=== PATIENT | female | born 1965 | race Caucasian/White ===

== ENCOUNTER 2020-07-14 10:01 | Outpatient (REF) | payer OTHER, SELFPAY ==
[2020-07-15 12:57] LABS: BV Int Neg Control Negative (Negative); BV Int Pos Control Positive (Positive)
== END 2020-07-14 10:02 | disposition home or self-care (01) ==
LOC: HO.LAB 10:01
PROVIDERS: Referring Provider Family Medicine; Visit Provider Advanced Practice Midwife
DX: Z01.419 Encounter for gynecological examination (general) (routine) without abnormal findings (principal); N89.8 Other specified noninflammatory disorders of vagina
CPT/HCPCS: 87480; 87510; 87660

== ENCOUNTER 2020-08-19 10:42 | Outpatient (REF) | payer OTHER, SELFPAY ==
--- NOTE | 2020-08-19 10:45 | MM_ITS ---
EXAMINATION: MM SCREENING DIGITAL BREAST TOMOSYNTHESIS, BILATERAL CLINICAL INFORMATION: Screening. Asymptomatic. The lifetime risk of breast cancer based on the Tyrer-Cuzick Model is 16.4%. COMPARISON: Mammography: July 20, 2019 and studies dating back to May 08, 2016 TECHNIQUE: Digital breast tomosynthesis is performed in both the craniocaudal and mediolateral oblique views along with computer-aided detection (CAD). Synthesized 2D images are generated from the tomosynthesis. FINDINGS: The breasts are heterogeneously dense, which may obscure small masses (ACR BI-RADS breast composition Category c). There are no significant masses, abnormal calcifications, or other abnormalities. MM/MM tomosynthesis screening BI IMPRESSION: There are no significant changes from prior study. ASSESSMENT: BI-RADS 1: Negative RECOMMENDATION: Routine annual mammography screening. This patient's information was entered into a reminder system with a target due date for their next mammogram.
== END 2020-08-19 10:43 | disposition home or self-care (01) ==
LOC: HO.MAMMO 10:42
PROVIDERS: Visit Provider Advanced Practice Midwife
DX: Z12.31 Encounter for screening mammogram for malignant neoplasm of breast (principal)
CPT/HCPCS: 77063; 77067

== ENCOUNTER → 2020-10-13 14:06 | Outpatient (BNVA) | payer OTHER, SELFPAY | PROVIDERS: PCP Family Medicine; Visit Provider Advanced Practice Midwife | DX: N94.9 Unspecified condition associated with female genital organs and menstrual cycle (principal); N89.8 Other specified noninflammatory disorders of vagina; R10.30 Lower abdominal pain, unspecified | CPT/HCPCS: Q3014 ==

== ENCOUNTER → 2021-01-10 15:45 | Outpatient (BNVA) | payer OTHER, SELFPAY | PROVIDERS: PCP Family Medicine; Visit Provider Advanced Practice Midwife | DX: N94.9 Unspecified condition associated with female genital organs and menstrual cycle (principal) | CPT/HCPCS: 99212; Q3014 ==

== ENCOUNTER 2021-01-30 20:09 | Emergency (ER) | payer OTHER, SELFPAY ==
--- NOTE | ~2021-01-30 | XR_ITS ---
EXAMINATION: PORTABLE CHEST 1 VIEW CLINICAL INFORMATION: cp . COMPARISON: 08/23/2012. TECHNIQUE: Portable frontal view of the chest was obtained. FINDINGS: The lungs are well expanded. No focal infiltrate, effusion, edema, or pneumothorax. Cardiac and mediastinal silhouettes are within normal limits for technique. No acute bony abnormality seen. XR/XR chest 1V IMPRESSION: No evidence of acute disease.
--- NOTE | 2021-01-30 20:12 | ECG_ITS ---
Test Reason : ABD PAIN Blood Pressure : / mmHG Vent. Rate : 064 BPM Atrial Rate : 064 BPM P-R Int : 136 ms QRS Dur : 080 ms QT Int : 400 ms P-R-T Axes : 074 081 061 degrees QTc Int : 412 ms Normal sinus rhythm Normal ECG When compared with ECG of 23-AUG-2012 21:11, No significant change was found Referred By: Generic ED Physician Electronically Signed By:TIFFANIE FINE MD
[2021-01-30 20:39] LABS: MANUAL DIFF FLAG NO
[2021-01-30 20:46] VITALS: BP 118/75; PULSE 69; RESP 18; TEMP 37.1; O2SAT 99; BMI 23.7
[2021-01-30 20:50] LABS: Basophils Percent Auto 0.8 % (0-2); Eosinophils Absolute Auto 0.1 X10*3/uL (0.0-0.4); Eosinophils Percent Auto 2.5 % (0-4); Hematocrit 35.6 % (37-47); Hemoglobin 11.8 g/dl (12.0-16.0); Imm Gran Abs Auto 0.01 X10*3/uL (0.00-0.03); Imm Gran Pct Auto 0.2 % (0.0-0.4); Lymphocytes Absolute Auto 2.4 X10*3/uL (1.2-4.9); Lymphocytes Percent Auto 49.9 % (20-40); Mean Corpuscular HGB Conc 33.1 g/dl (31.0-35.0); Mean Corpuscular Hemoglobin 31.1 pg (27.0-33.0); Mean Corpuscular Volume 93.9 fL (80-98); Mean Platelet Volume 9.8 fL (9.4-12.3); Monocytes Absolute Auto 0.4 X10*3/uL (0.1-1.2); Monocytes Percent Auto 8.4 % (2-11); Neutrophils Absolute Auto 1.8 X10*3/uL (2.0-8.3); Neutrophils Percent Auto 38.2 % (45-73); Platelet Count 225 X10*3/uL (160-400); Red Blood Count 3.79 X10*6/uL (4.20-5.50); Red Cell Distribution Width 11.9 % (11.0-16.0); White Blood Count 4.8 X10*3/uL (4.8-10.8)
[2021-01-30 21:07] LABS: Troponin-I High Sensitivity < 3.5 ng/L (<3.5-17.0)
[2021-01-30 21:13] LABS: Anion Gap 11 (12-20); Blood Urea Nitrogen 14 mg/dL (9-16); Calcium 8.9 mg/dL (8.4-10.2); Carbon Dioxide 28 mmol/L (22-29); Chloride 108 mmol/L (96-108); Estimated Glomerular Filt Rate > 60; Glucose Random 93 mg/dL (60-115); Potassium 3.5 mmol/L (3.3-5.1); Sodium 143 mmol/L (135-145)
[2021-01-30 22:00] VITALS: BP 118/75; PULSE 69; RESP 18; O2SAT 99
--- NOTE | 2021-01-31 00:16 | ED.CHESTPAIN ---
HPI - Chest Pain General Chief Complaint: Chest Pain Stated Complaint: chest pain Time Seen by Provider: 01/31/21 00:14 Source: patient Mode of arrival: ambulatory Limitations: no limitations History of Present Illness MD complaint: chest pain Onset (ago): week(s) (2) Timing of current episode: episodic Prior episodes: No Onset: after eating Pain location: substernal Pain radiation: none Severity: moderate Quality: tightness Relieving factors: other (belching) Exacerbating factors: eating Treatment prior to arrival: none Related Data Previous Rx's Medication Instructions Recorded estradiol 1 g VAGINAL 2XW #42.5 g 01/10/21 omeprazole 20 mg PO DAILY 14 Days #14 cap 01/31/21 Allergies Allergy/AdvReac Type Severity Reaction Status Date / Time latex [LATEX] Allergy Unknown RASH Verified 01/30/21 20:46 milk [MILK] Allergy Unknown UNKNOWN Verified 01/30/21 20:46 Review of Systems Review of Systems: Constitutional : No Weight loss, No Fever, No Chills ENT/Mouth : No sore throat, No Rhinorrhea Eyes: No Eye Pain, No Swelling Cardiovascular : pos Chest Pain, noSOB, no Dyspnea on Exertion, No Orthopnea, No Edema, No Palpitations Respiratory : No Cough, No Sputum Gastrointestinal : pos Nausea, No Vomiting, No Diarrhea, No abdominal Pain, No Hematochezia, pos Melena post pepto bismol Genitourinary : No Dysuria, No Urinary Frequency Musculoskeletal : No joint pain, No Myalgias, No Joint Swelling Skin : No Skin Lesions, No rash Neuro : No Weakness, No Numbness, No Dizziness, No Headache Psych : No Anxiety/Panic, No Depression Heme/Lymph: No Bruising, No Lymphadenopathy Endocrine : No Polyuria, No Polydipsia All other systems reviewed and are negative [facility] Past Medical History Attestation statement: The following information was validated with the patient. Medical History Menorrhagia Surgical History Hx of appendectomy Hx of removal of ovary Hx of total hysterectomy Family History Family History Father HTN (hypertension) Stroke Mother HTN (hypertension) Stroke Breast cancer Social History Social History Alcohol intake: current Alcohol intake frequency: 3 or more drinks per day Alcohol type: wine Smoking Status: Unknown if ever smoked Use of substances other than those prescribed or required for medical reasons: Unknown Advance Directives: No Advance Directives Information Provided: No Patient : No Gender identity: female Physical Exam Vital Signs: Vital Signs: Last Vital Signs Temp 98.7 F 01/30/21 20:46 Pulse 69 01/30/21 22:00 Resp 18 01/30/21 22:00 BP 118/75 01/30/21 22:00 Pulse Ox 99 01/30/21 22:00 Body Mass Index 23.7 Appearance: Alert. Oriented X3. No acute distress. Eyes: Pupils equal, round and reactive to light. ENT: Pharynx normal. Neck: Normal inspection. Neck supple. CVS: Normal heart rate and rhythm. Pulses normal. Respiratory: No respiratory distress. Breath sounds normal. Abdomen: Soft and nontender. Skin: Skin warm and dry. Normal skin color. Normal skin turgor. Extremities: No lower extremity edema. No calf ttp Neuro: Oriented X 3. No motor deficit. No sensory deficit. MDM - Chest Pain MDM Narrative Medical decision making narrative: 55 yo female otherwise healthy no ACS risk factors, belching and chest tightness feels it is GERD x 2 weeks sent by urgent care clinic, not pleuritic, no hypoxia, no signs of DVT doubt PE at thist iem will need troponin x 1, EKG, CXR, suspect GERD Lab Data Result diagrams: 01/30/21 20:31 01/30/21 20:31 Labs: Lab Results 01/30/21 01/30/21 01/30/21 Range/Units 20:31 20:31 20:31 WBC 4.8 (4.8-10.8) X10*3/uL RBC 3.79 L (4.20-5.50) X10*6/uL Hgb 11.8 L (12.0-16.0) g/dl Hct 35.6 L (37-47) % MCV 93.9 (80-98) fL MCH 31.1 (27.0-33.0) pg MCHC 33.1 (31.0-35.0) g/dl RDW 11.9 (11.0-16.0) % Plt Count 225 (160-400) X10*3/uL MPV 9.8 (9.4-12.3) fL Immature Gran % (Auto) 0.2 (0.0-0.4) % Neut % (Auto) 38.2 L (45-73) % Lymph % (Auto) 49.9 H (20-40) % [place] % (Auto) 8.4 (2-11) % Eos % (Auto) 2.5 (0-4) % Baso % (Auto) 0.8 (0-2) % Lymph # (Auto) 2.4 (1.2-4.9) X10*3/uL [place] # (Auto) 0.4 (0.1-1.2) X10*3/uL Eos # (Auto) 0.1 (0.0-0.4) X10*3/uL Baso # (Auto) 0.0 (0.0-0.2) X10*3/uL Abs Immat Gran (auto) 0.01 (0.00-0.03) X10*3/uL Absolute Neuts (auto) 1.8 L (2.0-8.3) X10*3/uL Absolute Nucleated RBC 0.000 (0.0-0.012) X10*3/uL Nucleated RBC % (auto) 0.0 (0.0-0.2) /100WBC Hold Blue Top SEE NOTE Sodium 143 (135-145) mmol/L Potassium 3.5 (3.3-5.1) mmol/L Chloride 108 (96-108) mmol/L Carbon Dioxide 28 (22-29) mmol/L Anion Gap 11 L (12-20) BUN 14 (9-16) mg/dL Creatinine 0.81 (0.5-1.4) mg/dL Estim Creat Clear Calc 81.0 Estimated GFR > 60 Random Glucose 93 (60-115) mg/dL Calcium 8.9 (8.4-10.2) mg/dL Troponin I High Sens (<3.5-17.0) ng/L Stool Occult Blood (NEGATIVE) 01/30/21 01/31/21 Range/Units 20:31 00:25 WBC (4.8-10.8) X10*3/uL RBC (4.20-5.50) X10*6/uL Hgb (12.0-16.0) g/dl Hct (37-47) % MCV (80-98) fL MCH (27.0-33.0) pg MCHC (31.0-35.0) g/dl RDW (11.0-16.0) % Plt Count (160-400) X10*3/uL MPV (9.4-12.3) fL Immature Gran % (Auto) (0.0-0.4) % Neut % (Auto) (45-73) % Lymph % (Auto) (20-40) % [place] % (Auto) (2-11) % Eos % (Auto) (0-4) % Baso % (Auto) (0-2) % Lymph # (Auto) (1.2-4.9) X10*3/uL [place] # (Auto) (0.1-1.2) X10*3/uL Eos # (Auto) (0.0-0.4) X10*3/uL Baso # (Auto) (0.0-0.2) X10*3/uL Abs Immat Gran (auto) (0.00-0.03) X10*3/uL Absolute Neuts (auto) (2.0-8.3) X10*3/uL Absolute Nucleated RBC (0.0-0.012) X10*3/uL Nucleated RBC % (auto) (0.0-0.2) /100WBC Hold Blue Top Sodium (135-145) mmol/L Potassium (3.3-5.1) mmol/L Chloride (96-108) mmol/L Carbon Dioxide (22-29) mmol/L Anion Gap (12-20) BUN (9-16) mg/dL Creatinine (0.5-1.4) mg/dL Estim Creat Clear Calc Estimated GFR Random Glucose (60-115) mg/dL Calcium (8.4-10.2) mg/dL Troponin I High Sens < 3.5 (<3.5-17.0) ng/L Stool Occult Blood NEGATIVE (NEGATIVE) ECG Data ECG #1: Attestation: I personally reviewed and interpreted this ECG as follows: ECG interpretation date: 01/31/21 ECG interpretation time: 00:17 Interpretation: Rate: 64 Rhythm: NSR [place]: normal Normal P waves. Normal ZARI. Normal QRS complex. ST T wave : normal no MARGARET qTC: normal prior studies: no acute ischemia The study has been interpreted contemporaneously by me. . Discharge Plan Discharge Clinical Impression: Gastroesophageal reflux disease Patient Disposition: Home, Self-Care Instructions: Diet for Stomach Ulcers and Gastritis (ED), Gastroesophageal Reflux Disease (ED) Additional Instructions: return to ED for any worsening symptoms or concerns negative for stool in the blood Prescriptions: New omeprazole 20 mg capsule,delayed release(DR/EC) 20 mg PO DAILY 14 Days Qty: 14 RF: 1 No Action estradiol [Estrace] 0.01 % (0.1 mg/gram) cream 1 g vaginal 2XW Qty: 42.5 RF: 1 Referrals: Jamaica Waldrop MD [Primary Care Provider] - 5 days (if not better)
[2021-01-31] MEDS: Famotidine 20 MG TABLET PO (00:34)
[2021-01-31] MEDS: Lidocaine HCl Viscous 2 % 15 ML SOLUTION MUCOUS MEM (00:34)
[2021-01-31] MEDS: Magnesium Hydrox/Alum Hydrox 30 ML ORAL.SUSP PO (00:34)
[2021-01-31 00:57] LABS: OBS Int Ctl Valid YES; OBS1 NEGATIVE (NEGATIVE)
== END 2021-01-31 03:51 | disposition home or self-care (01) ==
PROVIDERS: Emergency Provider Emergency Medicine; PCP Family Medicine
DX: K21.9 Gastro-esophageal reflux disease without esophagitis (principal); Z79.899 Other long term (current) drug therapy
CPT/HCPCS: 36415; 71045; 80048; 82272; 84484; 85025; 93005; 99285

== ENCOUNTER → 2021-04-09 08:44 | Outpatient (BNVA) | payer OTHER, SELFPAY | PROVIDERS: PCP Family Medicine; Visit Provider Advanced Practice Midwife | DX: N94.9 Unspecified condition associated with female genital organs and menstrual cycle (principal); N95.2 Postmenopausal atrophic vaginitis | CPT/HCPCS: 99212 ==

== ENCOUNTER → 2021-07-17 08:04 | Outpatient (BNVA) | payer OTHER, SELFPAY | PROVIDERS: PCP Family Medicine; Visit Provider Advanced Practice Midwife ==

== ENCOUNTER 2021-09-20 15:01 | Outpatient (REF) | payer OTHER, SELFPAY ==
--- NOTE | ~2021-09-20 | MM_ITS ---
EXAMINATION: MM SCREENING DIGITAL BREAST TOMOSYNTHESIS, BILATERAL CLINICAL INFORMATION: Screening. Asymptomatic. The lifetime risk of breast cancer based on the Tyrer-Cuzick Model is 22.9%. Additional annual screening with breast MRI may be of benefit in women with a score of 20% or greater. COMPARISON: Mammography: August 19, 2020 and studies dating back to May 08, 2016 TECHNIQUE: Digital breast tomosynthesis is performed in both the craniocaudal and mediolateral oblique views along with computer-aided detection (CAD). Synthesized 2D images are generated from the tomosynthesis. FINDINGS: There are scattered areas of fibroglandular density (ACR BI-RADS breast composition Category b). There are no significant masses, abnormal calcifications, or other abnormalities. MM/MM tomosynthesis screening BI IMPRESSION: There are no significant changes from prior study. ASSESSMENT: BI-RADS 1: Negative RECOMMENDATION: Routine annual mammography screening. This patient's information was entered into a reminder system with a target due date for their next mammogram.
== END 2021-09-20 15:02 | disposition home or self-care (01) ==
LOC: HO.MAMMO 15:01
PROVIDERS: Visit Provider Advanced Practice Midwife
DX: Z12.31 Encounter for screening mammogram for malignant neoplasm of breast (principal)
CPT/HCPCS: 77063; 77067

== ENCOUNTER 2022-09-26 15:00 | Outpatient (REF) | payer OTHER, SELFPAY ==
--- NOTE | ~2022-09-26 | MM_ITS ---
EXAMINATION: MM SCREENING DIGITAL BREAST TOMOSYNTHESIS, BILATERAL CLINICAL INFORMATION: Screening. Asymptomatic. The lifetime risk of breast cancer based on the Tyrer-Cuzick Model is 19.2%. COMPARISON: Mammography: September 20, 2021 and studies dating back to March 23, 2015 TECHNIQUE: Digital breast tomosynthesis is performed in both the craniocaudal and mediolateral oblique views along with computer-aided detection (CAD). Synthesized 2D images are generated from the tomosynthesis. FINDINGS: There are scattered areas of fibroglandular density (ACR BI-RADS breast composition Category b). There are no significant masses, abnormal calcifications, or other abnormalities. MM/MM tomosynthesis screening BI IMPRESSION: No significant changes ASSESSMENT: BI-RADS 1: Negative RECOMMENDATION: Routine annual mammography screening. This patient's information was entered into a reminder system with a target due date for their next mammogram.
== END 2022-09-26 15:01 | disposition home or self-care (01) ==
LOC: HO.MAMMO 15:00
PROVIDERS: Visit Provider Family Medicine
DX: Z12.31 Encounter for screening mammogram for malignant neoplasm of breast (principal)
CPT/HCPCS: 77063; 77067

== ENCOUNTER 2023-08-15 08:01 | Outpatient (AMB) | payer OTHER, SELFPAY ==
--- NOTE | 2023-08-15 08:03 | MHC.OFFVIS ---
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 She is doing well with concerns: Slight external irritation at times, using a baby soap no new laundry detergents or irritants noted. Attempting to eat a healthy diet with calcium and vitamin D and stays active with exercise. Currently not sexually active. Last mammogram; 09/2022,neg Colonoscopy is UTD. Denies any family history of breast, ovarian or colon cancer. 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 Sexual orientation: Straight/Heterosexual Gender identity: Female Female Reproductive History Menstrual Age of Menarche: 13 Menopause type: surgical Total pregnancies: 0 Date of last pap smear: 05/24/16 Date of Mammogram: 09/26/22 Review of Systems Const All systems reviewed & are unremarkable except as noted in HPI and below Reports as per HPI Eyes Reports no additional complaints ENT Reports no additional complaints Card Reports no additional complaints Resp Reports no additional complaints GI Reports as per HPI and Reports no additional complaints Reports as per HPI Musc Reports no additional complaints Skin/Breast Reports as per HPI Neuro Reports no additional complaints Psych Reports no additional complaints Endo Reports no additional complaints Chago/Lymph Reports no additional complaints Aller/Immun Reports no additional complaints Physical Exam Vital Signs: Last Vital Signs BP 110/64 08/15/23 08:06 BMI result Body Mass Index 24.3 Const General: cooperative, healthy appearing, no acute distress, well developed and alert Orientation/consciousness: patient oriented x3 HEENT Head: Yes normal to inspection Eyes General: appearance normal, both eyes and all related structures Neck Neck: Yes normal visual inspection Thyroid: Thyroid normal Chest Chest palpation & inspection: normal inspection of the chest and other (no puckering, dimpling, peau de orange, retraction, discharge, masses) Breast/axilla inspection: normal inspection of the breasts Breast/axilla palpation: normal palpation of the breasts Resp Effort & Inspection: normal respiratory effort GI Inspection: Yes normal to inspection Palpation (GI): Soft to palpation Rectal Exam - Female: deferred Other: Normal external appearance no signs of erythema or edema General: Yes bladder normal to palpation External Female Exam: normal external appearance and normal appearance of the urethra Speculum Exam - Vagina: normal appearance of the vagina, normal vaginal discharge and vagina atrophic Speculum Exam - Cervix: normal appearance of the cervix and Cervix absent (Vaginal cuff, no lesions or nodules) Bimanual exam- vagina & uterus: normal bimanual exam, bladder normal to palpation and uterus absent Bimanual Exam- Adnexa, other: no masses Skin General skin exam: no rashes or lesions noted Rashes: no rashes Neuro General: patient oriented x3 Cognition (Neuro): normal cognition Extrem General: Yes normal to inspection Psych Attitude: cooperative Thought process: Normal thought process present Assessment & Plan Assessment & Plan (1) Well female exam without gynecological exam: Code(s): Z00.00 - Encounter for general adult medical examination without abnormal findings Plan Discussed: Current recommendations for pap smears per ASCCP guidelines. Breast awareness, periodic self breast exams and yearly mammogram. Maintain a healthy lifestyle, well balanced diet including Calcium 1,200 mg and Vitamin D 600 IU daily, and routine exercise. Discussed aging skin changes. Instructions: Clean with warm water, no soaps, scented products. Wear loose, cotton underclothes, avoid tight outer clothing. Air when possible. All of her questions and concerns were addressed to the best of my ability. RTO in 1 year for annual child & adolescent psychiatrist exam. Orders: Orders MM tomosynthesis screening BI Today Z12.31 - Encounter for screening mammogram for malignant neoplasm of breast Coding Level of Care Code Est Pt Prev Care 40-64y(46230) Diagnoses Well female exam without gynecological exam Z00.00
[2023-08-15 08:06] VITALS: BP 110/64; BMI 24.3
== END 2023-08-15 08:24 | disposition home or self-care (01) ==
PROVIDERS: Visit Provider Advanced Practice Midwife
DX: Z01.419 Encounter for gynecological examination (general) (routine) without abnormal findings (principal)
CPT/HCPCS: 99396

== ENCOUNTER → 2023-08-15 08:01 | Outpatient (BNVA) | payer OTHER, SELFPAY | PROVIDERS: Visit Provider Advanced Practice Midwife ==

== ENCOUNTER 2023-10-02 15:15 | Outpatient (REF) | payer OTHER, SELFPAY | END 2023-10-02 15:16 | disposition home or self-care (01) | LOC: HO.MAMMO 15:15 | PROVIDERS: Absent Provider Advanced Practice Midwife; PCP Family Medicine; Visit Provider Family Medicine | DX: Z12.31 Encounter for screening mammogram for malignant neoplasm of breast (principal) | CPT/HCPCS: 77063; 77067 ==

== ENCOUNTER → 2023-10-02 15:15 | Outpatient (BNV) | payer OTHER, SELFPAY | PROVIDERS: Absent Provider Advanced Practice Midwife; PCP Family Medicine; Visit Provider Radiology Diagnostic Radiology | DX: Z12.31 Encounter for screening mammogram for malignant neoplasm of breast (principal) | CPT/HCPCS: 77063; 77067 ==

== ENCOUNTER 2024-08-20 07:53 | Outpatient (AMB) | payer OTHER, SELFPAY ==
[2024-08-20 07:56] VITALS: BP 112/74; BMI 24.6
--- NOTE | 2024-08-20 07:56 | A.OFFVIS_ITS ---
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 She is doing well with concerns. Currently not sexually active. Admits to vaginal dryness/irritation. Stopped using vaginal Estrace months ago and would like to restart. Attempting to eat a healthy diet with calcium and vitamin D and stays active with exercise. Hysterectomy age 20-due to heavy menstrual bleeding. Last mammogram; 2023. Colonoscopy is UTD. Denies any family history of ovarian or colon cancer. FH breast cancer-mother. 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 Sexual orientation: Straight/Heterosexual Gender identity: Female Female Reproductive History Menstrual Age of Menarche: 13 Menopause type: surgical Total pregnancies: 0 Review of Systems Const All systems reviewed & are unremarkable except as noted in HPI and below Reports as per HPI Eyes Reports no additional complaints ENT Reports no additional complaints Card Reports no additional complaints Resp Reports no additional complaints GI Reports as per HPI and Reports no additional complaints Reports as per HPI Musc Reports no additional complaints Skin/Breast Reports as per HPI Neuro Reports no additional complaints Psych Reports no additional complaints Endo Reports no additional complaints Chago/Lymph Reports no additional complaints Aller/Immun Reports no additional complaints Physical Exam Vital Signs: Last Vital Signs BP 112/74 08/20/24 07:56 BMI result Body Mass Index 24.6 Const General: cooperative, healthy appearing, no acute distress, well developed and alert Orientation/consciousness: patient oriented x3 HEENT Head: Yes normal to inspection Eyes General: appearance normal, both eyes and all related structures Neck Neck: Yes normal visual inspection Thyroid: Thyroid normal Chest Chest palpation & inspection: normal inspection of the chest and other (no puckering, dimpling, peau de orange, retraction, discharge, masses) Breast/axilla inspection: normal inspection of the breasts Breast/axilla palpation: normal palpation of the breasts Resp Effort & Inspection: normal respiratory effort GI Inspection: Yes normal to inspection and Yes scar Palpation (GI): Soft to palpation Rectal Exam - Female: deferred General: Yes bladder normal to palpation External Female Exam: normal external appearance and normal appearance of the urethra Speculum Exam - Vagina: normal appearance of the vagina, normal palpation, normal vaginal discharge and vagina atrophic (Moderate to severe) Speculum Exam - Cervix: Cervix absent (Vaginal cuff no lesions or nodules ) Bimanual exam- vagina & uterus: normal bimanual exam, normal palpation, bladder normal to palpation and uterus absent Bimanual Exam- Adnexa, other: no masses Skin General skin exam: no rashes or lesions noted Rashes: no rashes Neuro General: patient oriented x3 Cognition (Neuro): normal cognition Extrem General: Yes normal to inspection Psych Attitude: cooperative Thought process: Normal thought process present Assessment & Plan Assessment & Plan (1) Encounter for well woman exam with routine gynecological exam: Code(s): Z01.419 - Encounter for gynecological examination (general) (routine) without abnormal findings Category: Medical Plan Discussed: Current recommendations for pap smears per ASCCP guidelines. Breast awareness, periodic self breast exams and yearly mammogram. Await BV panel for plan of care. Discuss vulvar skin care and self-help measures related to menopause. Restart vaginal estrogen, counseled regarding association with breast cancer, frequency and dosing reviewed. Maintain a healthy lifestyle, well balanced diet including Calcium 1,200 mg and Vitamin D 600 IU daily, and routine exercise. Referral for BRCA testing, she would like to consider it and will reach out to my office via the portal or telephone call if she desires to have genetic testing done. BRCA info handout given. Patient verbalizes understanding and agrees to the plan of care. She was given opportunity to ask questions and all questions were answered to the best of my ability. RTO in 1 year for annual experimental rocket sled mechanic exam. This note is constructed using voice recognition software. While every effort has been made to ensure accuracy, process safety engineering technologist errors may have been included. Orders: Orders Bacterial Vaginosis Panel Today N89.8 - Other specified noninflammatory disorders of vagina, N95.2 - Postmenopausal atrophic vaginitis MM tomosynthesis screening BI Today Z12.31 - Encounter for screening mammogram for malignant neoplasm of breast Medications: New estradiol 0.01%(0.1mg/gram) (Estrace) use nightly for two weeks, then twice a week 1 g vaginal 2XW 42.5 grams 2RF Coding Level of Care Code Est Pt Prev Care 40-64y(35997) Diagnoses Encounter for well woman exam with routine gynecological exam Z01.419
== END 2024-08-20 08:35 | disposition home or self-care (01) ==
LOC: HO.HWS 07:53
PROVIDERS: Visit Provider Advanced Practice Midwife
DX: Z01.419 Encounter for gynecological examination (general) (routine) without abnormal findings (principal)
CPT/HCPCS: 99396

== ENCOUNTER 2024-08-20 07:53 | Outpatient (REF) | payer OTHER, SELFPAY ==
[2024-08-20 15:13] LABS: Bacterial Vaginosis PCR NEGATIVE (Negative); Candida Group PCR NOT DETECTED (Not Detect); Candida glab krusei PCR NOT DETECTED (Not Detect); Trichomonas vaginalis PCR NOT DETECTED (Not Detect)
== END 2024-08-20 07:54 | disposition home or self-care (01) ==
LOC: HO.LAB 07:53
PROVIDERS: Visit Provider Advanced Practice Midwife
DX: Z01.419 Encounter for gynecological examination (general) (routine) without abnormal findings (principal); N95.2 Postmenopausal atrophic vaginitis
CPT/HCPCS: 0352U; 99396

== ENCOUNTER 2024-10-07 14:59 | Outpatient (REF) | payer OTHER, SELFPAY | END 2024-10-07 15:00 | disposition home or self-care (01) | LOC: HO.MAMMO 14:59 | PROVIDERS: PCP Nurse Practitioner Primary Care; Referring Provider Advanced Practice Midwife; Visit Provider Nurse Practitioner Primary Care | DX: Z12.31 Encounter for screening mammogram for malignant neoplasm of breast (principal) | CPT/HCPCS: 77063; 77067 ==

== ENCOUNTER → 2024-10-07 15:15 | Outpatient (BNV) | payer OTHER, SELFPAY | PROVIDERS: PCP Nurse Practitioner Primary Care; Referring Provider Advanced Practice Midwife; Visit Provider Internal Medicine | DX: Z12.31 Encounter for screening mammogram for malignant neoplasm of breast (principal) | CPT/HCPCS: 77063; 77067 ==

== ENCOUNTER 2024-10-25 08:00 | Outpatient (AMB) | payer OTHER, SELFPAY ==
--- NOTE | 2024-10-25 08:11 | MHC.PC.OV ---
Vital Signs 10/25/24 08:14 10/25/24 08:44 Height 5 ft 6.93 in Weight 161 lb 4 oz BMI 25.3 BP 140/78 H 120/68 Blood Pressure Location Lt brachial Lt brachial Position Sitting Sitting Pulse 77 Pulse Source Pulse Oximeter Temp 97.1 F Temp Source Skin Pulse Oximetry (%) 97 Oxygen Delivery Method Room Air Intake Visit Reasons: establish care Intake Note: Patient is a new patient here to establish care for Depression, Headaches. Transferring care from Dr De Anda ([facility]). Medical records have been requested and have not received. Show Operations Supervisor Required: No Regulatory Compliance Coordinator: Not Required per policy Accompanied by: Self / Same As Patient Allergies cephalexin Allergy (Severe, Verified 10/25/24 08:29) Anaphylaxis latex [LATEX] Allergy (Unknown, Verified 10/25/24 08:29) RASH milk [MILK] Allergy (Unknown, Verified 10/25/24 08:29) UNKNOWN Medication List - Last Reconciled 10/25/24 by Anahi Prasad PA-C calcium carbonate 500 mg PO DAILY cholecalciferol (vitamin D3) 25 mcg PO DAILY estradiol 0.01%(0.1mg/gram) (Estrace) 1 g vaginal 2XW magnesium 200 mg PO DAILY multivitamin (Daily Multi-Vitamin tablet) 1 tab PO DAILY Tobacco use date assessed: 10/25/24 Dental Screening Dental Screen Date: 10/25/24 Did you have a dental visit in the last 12 months?: Yes Did you have a dental problem in the last 6 months where you did not have access to dental care?: No Was dental information given to patient?: Patient has dentist HPI establish care HPI Details 59-year-old female with past medical history of vitamin-D deficiency an atrophic vaginitis coming to the office for the 1st time.? Patient completed mammogram 09/2024 negative follow up in 1 year.? Patient follows with [facility] gynecology last seen 08/2024 treated for atrophic vaginitis advised to follow up in 1 year. Patient tells us today she was previously being seen by [facility] last seen 11/2023. Around 10 years ago she was being treated for depression and anxiety with Prozac but has discontinued that medication. She follows with a therapist through [facility] in [place] weekly and finds this helpful for anxiety and depression. She overall feels generally well. She does have 1 concern about her right middle finger she had a crush injury to that nailbed last year and since then has had nail deformity and we will occasionally leak serous fluid. colonoscopy: [id number] follow up in 5 years done at [facility] mammo: 09/2024 follow up in 1 year pap: 08/2024 vax: COVID not UTD, flu shannan 10/2024, tetanus within last 2 years eye doctor: every year [facility] in [facility] Surgical History Hx of removal of ovary Hx of total hysterectomy Hx of appendectomy Family History Father HTN (hypertension) Stroke Mother HTN (hypertension) Stroke Breast cancer, Onset Age: 60 Maternal Grandmother Spinal cord cancer Social History Household Members: None Housing: House Alcohol intake: current Alcohol intake frequency: does not drink Alcohol type: wine Patient Tobacco Use Status: Never used Tobacco e-Cigarette/Vaping Use: Never Used Second Hand Smoke Exposure: No service: No Current occupational status: employed 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 1. Little interest or pleasure in doing things: not at all 2. Feeling down, depressed, or hopeless: several days 3. Trouble falling or staying asleep, or sleeping too much: not at all 4. Feeling tired or having little energy: several days 5. Poor appetite or overeating: several days 6. Feeling bad about yourself - or that you are a failure or have let yourself or your family down: several days 7. Trouble concentrating on things, such as reading the newspaper or watching television: not at all 8. Moving or speaking so slowly that other people could have noticed. Or the opposite - being so fidgety or restless that you have been moving around a lot more than usual: not at all 9. Thoughts that you would be better off or of hurting yourself in some way: not at all Total score: 4 Depression Screening Interpretation: Positive (declines medication) Depression Screening Follow-up: Existing condition and In treatment Depression Screening Done: Yes Source: Developed by Drs. Steve Meraz, Tracy Vallecillo, Macho Tyler and colleagues, with an educational betzy from [employer]. Thrive Questionnaire Date Thrive assessed: 10/21/24 I am a: Patient What is your living situation today?: I have a steady place to live Within the past 12 months, did the food you bought not last and you didn't have the money to get more?: Never true Within the past 12 months, did you worry whether your food would run out before you got money to buy more?: Never true Do you have trouble paying for medicines?: No Do you have trouble getting transportation to medical appointments?: No Do you have trouble paying your heating and electricity bill?: I choose not to answer this question Do you have trouble taking care of your child, family member or friend?: No Do you have trouble with day-to-day activities such as bathing, preparing meals, shopping, managing finances, etc.?: No Are you currently unemployed and looking for a job?: Yes Are you interested in more education?: No Please select the resources that you would like help with: Utilities Currently or been in a relationship where the following occur: No concerns reported THRIVE Score: 0 AUDIT C Alcohol Use Questionnaire (AUDIT-C) 1. How often do you have a drink containing alcohol?: Monthly or less 2. How many drinks containing alcohol do you have on a typical day when you are drinking?: 1 or 2 3. How often do you have six or more drinks on one occasion?: Never Total Score: 1 ELIZABETH-7 AMB Questionnaire ELIZABETH-7 Date ELIZABETH - 7 assessed: 10/25/24 Feeling nervous, anxious, or on edge: 2 = More than half the days Not being able to stop or control worryin = Several days Worrying too much about different things: 1 = Several days Trouble relaxin = Not at all Being so restless that it is hard to sit still: 0 = Not at all Becoming easily annoyed or irritable: 1 = Several days Feeling afraid as if something awful might happen: 1 = Several days Total ELIZABETH-7 score (0-4 normal; 5-9 mild; 10-14 moderate; 15-21 severe): 6 Source: Developed by Drs. Steve Meraz, Tracy Vallecillo, Macho Tyler and colleagues, with an educational betzy from [employer]. ELIZABETH-7 Assessment Billing ELIZABETH-7 Assessment Tool: ELIZABETH-7 Assessment 80180 Review of Systems Const Denies body aches, Denies chills, Denies fever(s), Denies headache(s) and Denies poor appetite Eyes Reports no additional complaints ENT Denies dysphagia, Denies dizziness, Denies headache(s) and Denies odynophagia Card Denies chest pain, Denies syncope, Denies lightheadedness and Denies dyspnea Resp Denies dyspnea GI Denies abdominal pain, Denies constipation, Denies dysphagia, Denies diarrhea, Denies nausea, Denies odynophagia and Denies vomiting Reports no additional complaints Musc Reports no additional complaints and Denies abnormal gait Skin/Breast Reports system reviewed and no additional complaints, except as documented Neuro Denies abnormal gait, Denies dizziness, Denies syncope and Denies headache(s) Psych Reports no additional complaints Physical exam (Primary Care) Vital Signs: Last Vital Signs Temp 97.1 F 10/25/24 08:14 Pulse 77 10/25/24 08:14 BP 120/68 10/25/24 08:44 Pulse Ox 97 10/25/24 08:14 Oxygen Delivery Method Room Air 10/25/24 08:14 BMI result Body Mass Index 25.3 Tobacco/Smoking Status: Tobacco use Status Tobacco use date assessed 10/25/24 10/25/24 08:14 Patient Tobacco Use Status Never used Tobacco 10/25/24 08:20 e-Cigarette/Vaping Use Never Used 10/25/24 08:20 PHQ-9: PHQ-9 Score PHQ-9: Total score 4 10/25/24 08:41 Depression Screening Interpretation: Positive (declines medication) Depression Screening Follow-up: Existing condition and In treatment Thrive Assessment: Date of Thrive Assessment Date Thrive assessed 10/21/24 10/25/24 08:12 Currently or been in a relationship where the following occur: No concerns reported Const General: cooperative, healthy appearing, comfortable and no acute distress Orientation/consciousness: patient oriented x3 HENRI Head: Yes normocephalic Ears: hearing grossly normal bilaterally General nose exam: Normal external nose present Eyes General: appearance normal, both eyes and all related structures Conjunctivae: conjunctivae normal Neck Neck: Yes full ROM and Yes no lymphadenopathy Resp Effort & Inspection: normal respiratory effort Auscultation: clear to auscultation bilaterally, no crackles, no rales, no rhonchi and no wheezes Cardio Rate: regular rate Rhythm: regular rhythm Skin Other: Right middle finger having abnormal nail. No discoloration and no swelling or pain in the cuticle area, no fluid noted General skin exam: no rashes or lesions noted Neuro General: patient oriented x3 Gait exam (Neuro): Normal gait present Extrem General: Yes normal to inspection, Yes full ROM and No edema Psych Affect: normal affect Attitude: cooperative Insight: Good insight present (Psych) Judgement: Good judgement present (Psych) Office Procedures Flu Questionnaire Does the patient have a severe egg allergy?: No Does the patient have severe life threatening allergies?: No Does the patient have a fever or illness today?: No Has the patient ever had Guillain-[place] Syndrome?: No Has the patient ever had any past reaction to a flu shot?: No Immunizations Fluarix Triv [id number] (PF) 45 mcg (15 mcg x 3)/0.5 mL IM syringe Performing Provider: Anahi Prasad PA-C [facility] Administered by: RAHEEM Encarnacion on 10/25/24 08:28 Dose Route Admin Location Dispensed Lot Number Expiration Date [employer] 0.5 mL IM Left Deltoid 0.5 mL [id number] 03/14/25 [id number] zanda VIS Given Date VIS Provided VIS Publication Date 10/25/24 Single Vaccine 21 Eligibility Eligibility Date Funding Source Not [facility] Eligible 10/25/24 Private Coding Level of Care Code New Pt Level 4 (44309) Diagnoses Atrophic vaginitis N95.2 Depression F32.A Anxiety F41.9 Deformity of nail bed L60.8 Screening for hypercholesterolemia Z13.220 Additional Codes ELIZABETH-7 Assessment Billing - ELIZABETH-7 Assessment Tool: ELIZABETH-7 Assessment 49651 ([id number]) Assessment & Plan Assessment & Plan (1) Atrophic vaginitis: Code(s): N95.2 - Postmenopausal atrophic vaginitis Category: Medical Plan: Currently following with Gynecology feels the estradiol cream is working well. 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 Continue to follow with therapist weekly. 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 Continue to follow with therapist weekly. (4) Deformity of nail bed: Code(s): L60.8 - Other nail disorders Category: Medical Plan: Patient having deformity of the nailbed in the right middle finger since having a crush injury. I discussed with the patient nail bed injuries sometimes may have a permanent deformity of the nail based on the nature of the injury. Referral placed to Dermatology for further evaluation. (5) Screening for hypercholesterolemia: Code(s): Z13.220 - Encounter for screening for lipoid disorders Category: Medical Plan: Ordered for blood work Plan Plan to follow up in 2 months for annual exam or sooner if new problems arise. This note was constructed using voice recognition software. While every effort has been made to ensure accuracy and linotypist, still areas may have been included sometimes these areas may affect the content or meeting of the given symptoms. Total time spent caring for the patient today was 30 minutes. This includes time spent before the visit reviewing the chart, time spent during the visit, and time spent after the visit and documentation. Orders: Orders Influenza [id number] Immunization Today Z23 - Encounter for immunization Comprehensive Met. Panel Today Z00.00 - Encounter for general adult medical examination without abnormal findings Vitamin B12 and Folate Today Z00.00 - Encounter for general adult medical examination without abnormal findings Lipid Panel Today Z13.220 - Encounter for screening for lipoid disorders Complete Blood Count Auto Diff Today Z00.00 - Encounter for general adult medical examination without abnormal findings TSH reflex Free T4 Today Z00.00 - Encounter for general adult medical examination without abnormal findings Free T4 (Free Thyroxine) Today Z00.00 - Encounter for general adult medical examination without abnormal findings Vitamin D 25-OH Total Today Z00.00 - Encounter for general adult medical examination without abnormal findings Referrals Dermatology Referral L60.8 - Other nail disorders
[2024-10-25 08:14] VITALS: BP 140/78; PULSE 77; TEMP 36.2; O2SAT 97; BMI 25.3
[2024-10-25 08:44] VITALS: BP 120/68
== END 2024-10-25 08:53 | disposition home or self-care (01) ==
PROVIDERS: PCP Nurse Practitioner Primary Care
DX: N95.2 Postmenopausal atrophic vaginitis (principal); F32.A Depression, unspecified; F41.9 Anxiety disorder, unspecified; L60.8 Other nail disorders; Z13.220 Encounter for screening for lipoid disorders; Z23 Encounter for immunization

== ENCOUNTER → 2024-10-25 08:00 | Outpatient (BNVA) | payer OTHER, SELFPAY | PROVIDERS: PCP Nurse Practitioner Primary Care | DX: Z23 Encounter for immunization (principal); N95.2 Postmenopausal atrophic vaginitis; F32.A Depression, unspecified; F41.9 Anxiety disorder, unspecified; L60.8 Other nail disorders | CPT/HCPCS: 90471; 90656; 96127; 99202 ==

== ENCOUNTER 2024-12-23 08:33 | Outpatient (AMB) | payer OTHER, SELFPAY ==
--- NOTE | 2024-12-23 08:42 | MHC.PC.OV ---
Vital Signs 12/23/24 08:43 Height 5 ft 6.93 in Weight 163 lb BMI 25.6 BP 112/78 Blood Pressure Location Lt brachial Position Sitting Pulse 66 Pulse Source Pulse Oximeter Temp 97.3 F Temp Source Temporal Artery Scan Pulse Oximetry (%) 97 Oxygen Delivery Method Room Air Intake Visit Reasons: Annual Exam Intake Note: Patient here for a physical exam Rehabilitation Attendant Required: No Accompanied by: Self / Same As Patient Allergies cephalexin Allergy (Severe, Verified 12/23/24 09:00) Anaphylaxis latex [LATEX] Allergy (Unknown, Verified 12/23/24 09:00) RASH milk [MILK] Allergy (Unknown, Verified 12/23/24 09:00) UNKNOWN Medication List - Last Reconciled 12/23/24 by Anahi Prasad PA-C calcium carbonate 500 mg PO DAILY cholecalciferol (vitamin D3) 25 mcg PO DAILY estradiol 0.01%(0.1mg/gram) (Estrace) 1 g vaginal 2XW magnesium 200 mg PO DAILY multivitamin (Daily Multi-Vitamin tablet) 1 tab PO DAILY Tobacco use date assessed: 10/25/24 Dental Screening Dental Screen Date: 10/25/24 HPI Annual Exam HPI Details 59-year-old female with past medical history of atrophic vaginitis, anxiety, depression last seen 10/2024 coming in for annual exam. Presenting with concerns about dyslipidemia. Two months ago, patient was notified of elevated cholesterol levels: triglycerides at 175 mg/dL, LDL cholesterol at 153 mg/dL. Familial predisposition noted with both parents having had strokes and hypertension. Managing cholesterol through lifestyle: reducing pastries, egg yolks, fried foods, and implementing exercise. Does also mention having swelling over the right middle finger nail bed. Also having chronic rash on the right foot previously evaluated and determined to be ruptured blood vessels. The rash is non painful but for cosmetic reasons patient would like to look into treatment. Mammogram: Up-to-date 09/2024 Pap smear: Up-to-date follows with gynecology Colonoscopy: [id number] at [facility] follow up in 5 years [facility] Surgical History Hx of removal of ovary Hx of total hysterectomy Hx of appendectomy Family History Father HTN (hypertension) Stroke Mother HTN (hypertension) Stroke Breast cancer, Onset Age: 60 Maternal Grandmother Spinal cord cancer Social History Household Members: None Housing: House Alcohol intake: current Alcohol intake frequency: does not drink Alcohol type: wine Patient Tobacco Use Status: Never used Tobacco e-Cigarette/Vaping Use: Never Used Second Hand Smoke Exposure: No service: No Current occupational status: employed 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 Current occupational exposures/hazards: No Sexual orientation: Straight/Heterosexual Gender identity: Female Cognitive needs: No Hearing needs: No Vision needs: Yes (Glasses) Female Reproductive History Menstrual Age of Menarche: 13 Questionnaire Thrive Questionnaire Date Thrive assessed: 10/21/24 I am a: Patient What is your living situation today?: I have a steady place to live Within the past 12 months, did the food you bought not last and you didn't have the money to get more?: Never true Within the past 12 months, did you worry whether your food would run out before you got money to buy more?: Never true Do you have trouble paying for medicines?: No Do you have trouble getting transportation to medical appointments?: No Do you have trouble paying your heating and electricity bill?: I choose not to answer this question Do you have trouble taking care of your child, family member or friend?: No Do you have trouble with day-to-day activities such as bathing, preparing meals, shopping, managing finances, etc.?: No Are you currently unemployed and looking for a job?: Yes Are you interested in more education?: No Please select the resources that you would like help with: Utilities Currently or been in a relationship where the following occur: No concerns reported THRIVE Score: 0 ELIZABETH-7 AMB Questionnaire ELIZABETH-7 Date ELIZABETH - 7 assessed: 10/25/24 Source: Developed by Drs. Steve Meraz, Tracy Vallecillo, Macho Tyler and colleagues, with an educational betzy from [employer]. Review of Systems Const Denies body aches, Denies fatigue, Denies fever(s), Denies frequent falls, Denies headache(s) and Denies weakness Eyes Reports no additional complaints and Denies change in vision ENT Denies dysphagia, Denies dizziness, Denies headache(s) and Denies odynophagia Card Denies chest pain, Denies syncope, Denies irregular heart rhythm, Denies leg edema, Denies lightheadedness and Denies dyspnea Resp Denies cough and Denies dyspnea GI Denies abdominal pain, Denies constipation, Denies dysphagia, Reports dyspepsia, Reports heartburn, Denies diarrhea, Denies nausea, Denies odynophagia and Denies vomiting Denies urinary frequency, Denies dysuria, Denies urinary hesitancy and Denies urinary urgency Musc Denies back pain and Denies myalgias Skin/Breast Reports system reviewed and no additional complaints, except as documented Neuro Denies dizziness, Denies syncope, Denies frequent falls, Denies headache(s) and Denies weakness Psych Reports no additional complaints Endo Denies fatigue Physical exam (Primary Care) Vital Signs: Last Vital Signs Temp 97.3 F 12/23/24 08:43 BMI result Body Mass Index 25.6 Tobacco/Smoking Status: Tobacco use Status Tobacco use date assessed 10/25/24 10/25/24 08:14 Patient Tobacco Use Status Never used Tobacco 10/25/24 08:20 e-Cigarette/Vaping Use Never Used 10/25/24 08:20 Thrive Assessment: Date of Thrive Assessment Date Thrive assessed 10/21/24 10/25/24 08:12 Currently or been in a relationship where the following occur: No concerns reported Const General: cooperative, healthy appearing, comfortable and no acute distress Orientation/consciousness: patient oriented x3 HENMT Head: Yes normocephalic Ears: hearing grossly normal bilaterally, external ears normal, TM's normal bilaterally and EAC's normal General nose exam: Normal external nose present Face and sinus: Yes normal facial exam and Yes sinuses nontender Mouth: Normal oral and palatal mucosa present and tongue normal Throat: Yes posterior oropharynx normal Eyes General: appearance normal, both eyes and all related structures Conjunctivae: conjunctivae normal Pupils: Equal, round and reactive pupils present EOM: EOMs intact bilaterally and No Nystagmus present Neck Neck: Yes normal visual inspection, Yes full ROM and Yes no lymphadenopathy Chest Chest palpation & inspection: normal inspection of the chest Resp Effort & Inspection: normal respiratory effort Auscultation: clear to auscultation bilaterally, no crackles, no rales, no rhonchi, no wheezes and breath sounds present Cardio Rate: regular rate Rhythm: regular rhythm Peripheral pulses: radial pulses present and dorsalis pedis present GI Inspection: Yes normal to inspection and No Abdominal wall edema Palpation (GI): Soft to palpation, not firm and nontender Auscultation: normal bowel sounds Rectal Exam - Female: deferred General: Yes no CVA tenderness Back/Spine/Pelvis Back: no CVA tenderness Skin Other: rash on right foot consistent with ruptured blood vessels, non tender. Right middle finger with paronychia General skin exam: no rashes or lesions noted Neuro General: patient oriented x3 Cranial nerves: Yes Equal, round and reactive pupils present, Yes Midline tongue present, Yes Ability to bilaterally elevate shoulders present and No Nystagmus present Gait exam (Neuro): Normal gait present Extrem General: Yes normal to inspection, Yes full ROM, No no pedal edema and No edema Psych Speech and movement: Normal speech and movement present Affect: normal affect Insight: Good insight present (Psych) Judgement: Good judgement present (Psych) Coding Level of Care Code Est Pt Prev Care 40-64y(07652) Diagnoses Deformity of nail bed L60.8 Anxiety F41.9 Depression F32.A Atrophic vaginitis N95.2 Annual physical exam Z00.00 Paronychia of right middle finger L03.011 Rash of foot R21 Hypercholesterolemia E78.00 Assessment & Plan Assessment & Plan (1) Deformity of nail bed: Code(s): L60.8 - Other nail disorders Category: Medical Plan: Patient having deformity of the nailbed in the right middle finger since having a crush injury. I discussed with the patient nail bed injuries sometimes may have a permanent deformity of the nail based on the nature of the injury. Referral placed to Dermatology for further evaluation. 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 Continue to follow with therapist weekly. 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 Continue to follow with therapist weekly. (4) Atrophic vaginitis: Code(s): N95.2 - Postmenopausal atrophic vaginitis Category: Medical Plan: Currently following with Gynecology feels the estradiol cream is working well. (5) Annual physical exam: Code(s): Z00.00 - Encounter for general adult medical examination without abnormal findings Category: Medical Plan: Patient is up to date on all recommended routine screenings and vaccinations for her age. Healthy diet and regular exercise is encouraged. (6) Paronychia of right middle finger: Code(s): L03.011 - Cellulitis of right finger Category: Medical Plan: Paronychia of right middle finger recommend warm compress to facilitate drainage of the abscess and prescription sent for antibiotics. Advised patient to follow up if symtpoms do not improve after antibiotics. (7) Rash of foot: Code(s): R21 - Rash and other nonspecific skin eruption Category: Medical Plan: Rash at this time is chronic in nature and does not require treatment. Referral was placed to dermatology for further management. (8) Hypercholesterolemia: Code(s): E78.00 - Pure hypercholesterolemia, unspecified Category: Medical Plan: Avoid foods that are high in cholesterol such as red meat, fried foods, eggs and baked goods. Triglyceride goal of less than 150 and LDL goal of less than 130. ASCVD risk 2.3% not recommending the use of statins. Plan for lifestyle modification and follow up in 3 months with repeat labs. Plan This note was constructed using voice recognition software. While every effort has been made to ensure accuracy and analog design engineer, still areas may have been included sometimes these areas may affect the content or meeting of the given symptoms. Total time spent caring for the patient today was 30 minutes. This includes time spent before the visit reviewing the chart, time spent during the visit, and time spent after the visit and documentation. Patient was informed and verbally consented to the use of an ambient scribe for clinic note documentation during this visit. Orders: Orders Lipid Panel Today E78.00 - Pure hypercholesterolemia, unspecified Medications: New sulfamethoxazole-trimethoprim 800-160 mg (Bactrim DS) 1 tab PO BID 7 days 14 tabs 0RF
[2024-12-23 08:43] VITALS: BP 112/78; PULSE 66; TEMP 36.3; O2SAT 97; BMI 25.6
== END 2024-12-23 09:20 | disposition home or self-care (01) ==
LOC: HO.HMCH 08:34
PROVIDERS: PCP Nurse Practitioner Primary Care
DX: L60.8 Other nail disorders (principal); F41.9 Anxiety disorder, unspecified; F32.A Depression, unspecified; N95.2 Postmenopausal atrophic vaginitis; Z00.00 Encounter for general adult medical examination without abnormal findings; L03.011 Cellulitis of right finger; R21 Rash and other nonspecific skin eruption; E78.00 Pure hypercholesterolemia, unspecified

== ENCOUNTER → 2024-12-23 08:33 | Outpatient (BNVA) | payer OTHER, SELFPAY | PROVIDERS: PCP Nurse Practitioner Primary Care | DX: Z00.01 Encounter for general adult medical examination with abnormal findings (principal); F41.9 Anxiety disorder, unspecified; F32.A Depression, unspecified; L60.8 Other nail disorders; N95.2 Postmenopausal atrophic vaginitis; L03.011 Cellulitis of right finger; R21 Rash and other nonspecific skin eruption; E78.00 Pure hypercholesterolemia, unspecified | CPT/HCPCS: 99396 ==

== ENCOUNTER 2025-03-31 08:21 | Outpatient (AMB) | payer OTHER, SELFPAY ==
--- NOTE | 2025-03-31 08:25 | A.OFFPC_ITS ---
Vital Signs 03/31/25 08:26 Height 5 ft 6.93 in Weight 159 lb 6 oz BMI 25.0 BP 130/68 Blood Pressure Location Lt brachial Position Sitting Pulse 63 Pulse Source Pulse Oximeter Temp 96.2 F L Temp Source Temporal Artery Scan Pulse Oximetry (%) 94 Oxygen Delivery Method Room Air Intake Visit Reasons: f/u Cholesterol Intake Note: Patient is here to follow up on Cholesterol. Vest Baster Required: No Farm Specialist: Not Required per policy Accompanied by: Self / Same As Patient Allergies cephalexin Allergy (Severe, Verified 03/31/25 08:26) Anaphylaxis latex (LATEX) Allergy (Unknown, Verified 03/31/25 08:26) RASH milk (MILK) Allergy (Unknown, Verified 03/31/25 08:26) UNKNOWN Tobacco use date assessed: 03/31/25 Dental Screening Dental Screen Date: 10/25/24 HPI f/u Cholesterol HPI Details 59-year-old female with past medical his tory of atrophic vaginitis, anxiety, depression last seen 12/2024 coming in for follow up. Presenting with hyperlipidemia and lower back issues. Previously identified with elevated cholesterol levels, requiring follow-up lab work. Chronic lower back pain due to degenerative disc disease, managed with physical therapy exercises. 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 Current occupational exposures/hazards: No Sexual orientation: Straight/Heterosexual Gender identity: Female Cognitive needs: No Hearing needs: No Vision needs: Yes (Glasses) Female Reproductive History Menstrual Age of Menarche: 13 Questionnaire Thrive Questionnaire Date Thrive assessed: 10/21/24 I am a: Patient What is your living situation today?: I have a steady place to live Within the past 12 months, did the food you bought not last and you didn't have the money to get more?: Never true Within the past 12 months, did you worry whether your food would run out before you got money to buy more?: Never true Do you have trouble paying for medicines?: No Do you have trouble getting transportation to medical appointments?: No Do you have trouble paying your heating and electricity bill?: I choose not to answer this question Do you have trouble taking care of your child, family member or friend?: No Do you have trouble with day-to-day activities such as bathing, preparing meals, shopping, managing finances, etc.?: No Are you currently unemployed and looking for a job?: Yes Are you interested in more education?: No Please select the resources that you would like help with: Utilities Currently or been in a relationship where the following occur: No concerns reported THRIVE Score: 0 ELIZABETH-7 AMB Questionnaire ELIZABETH-7 Date ELIZABETH - 7 assessed: 10/25/24 Source: Developed by Drs. Steve Meraz, Tracy Vallecillo, Macho Tyler and colleagues, with an educational betzy from [employer]. Review of Systems Const Denies body aches, Denies chills, Denies fever(s), Denies headache(s) and Denies poor appetite Eyes Reports no additional complaints ENT Denies dizziness and Denies headache(s) Card Denies chest pain, Denies syncope, Denies lightheadedness and Denies dyspnea Resp Denies dyspnea GI Denies nausea and Denies vomiting Musc Reports no additional complaints and Denies abnormal gait Neuro Denies abnormal gait, Denies dizziness, Denies syncope and Denies headache(s) Psych Reports no additional complaints Physical exam (Primary Care) Vital Signs: Last Vital Signs Temp 96.2 F L 03/31/25 08:26 Pulse 63 03/31/25 08:26 BP 130/68 03/31/25 08:26 Pulse Ox 94 03/31/25 08:26 Oxygen Delivery Method Room Air 03/31/25 08:26 BMI result Body Mass Index 25.0 Tobacco/Smoking Status: Tobacco use Status Tobacco use date assessed 03/31/25 03/31/25 08:32 Patient Tobacco Use Status Never used Tobacco 03/31/25 08:32 e-Cigarette/Vaping Use Never Used 03/31/25 08:32 Thrive Assessment: Date of Thrive Assessment Date Thrive assessed 10/21/24 03/31/25 08:32 Currently or been in a relationship where the following occur: No concerns reported Const General: cooperative, healthy appearing, comfortable and no acute distress Orientation/consciousness: patient oriented x3 HENMT Head: Yes normocephalic Ears: hearing grossly normal bilaterally General nose exam: Normal external nose present Eyes General: appearance normal, both eyes and all related structures Conjunctivae: conjunctivae normal Neck Neck: Yes full ROM and Yes no lymphadenopathy Resp Effort & Inspection: normal respiratory effort Auscultation: clear to auscultation bilaterally, no crackles, no rales, no rhonchi and no wheezes Cardio Rate: regular rate Rhythm: regular rhythm Skin General skin exam: no rashes or lesions noted Neuro General: patient oriented x3 Gait exam (Neuro): Normal gait present Extrem General: Yes normal to inspection, Yes full ROM and No edema Psych Affect: normal affect Attitude: cooperative Insight: Good insight present (Psych) Judgement: Good judgement present (Psych) Coding Level of Care Code Est Pt Level 3 (01595) Diagnoses Deformity of nail bed L60.8 Anxiety F41.9 Depression F32.A Hypercholesterolemia E78.00 Low back pain M54.50 Assessment & Plan Assessment & Plan (1) Deformity of nail bed: Code(s): L60.8 - Other nail disorders Category: Medical Plan: Patient having deformity of the nailbed in the right middle finger since having a crush injury. I discussed with the patient nail bed injuries sometimes may have a permanent deformity of the nail based on the nature of the injury. Referral placed to Dermatology for further evaluation. 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 Continue to follow with therapist weekly. (3) Depression: Comment: POSITION DESCRIPTION MANAGER weekly 10/2024 Code(s): F32.A - Depression, unspecified Category: Medical Plan: Patient has a history of depression anxiety previously being treated with Prozac but does not feel it is necessary at this time. Continue to follow with therapist weekly. (4) Hypercholesterolemia: Code(s): E78.00 - Pure hypercholesterolemia, unspecified Category: Medical Plan: Avoid foods that are high in cholesterol such as red meat, fried foods, eggs and baked goods. Triglyceride goal of less than 150 and LDL goal of less than 130. ASCVD risk 2.3% not recommending the use of statins. Patient did not have labs completed. Reminded patient about labs and she was given a 2nd copy of the lab orders to be completed as soon as possible. (5) Low back pain: Code(s): M54.50 - Low back pain, unspecified Category: Medical Plan: Chronic low back pain managed by physical therapy. Continue with heating pad, Tylenol and ibuprofen as needed Plan The patient will undergo follow-up lab work to monitor cholesterol levels, with no current need for medication due to a low risk score. For degenerative disc disease, continuation of physical therapy is advised, with potential escalation to pain management if necessary. A dermatology referral has been initiated for the middle finger issue, with [facility] expected to make contact. Headaches will be addressed with Sudafed and lifestyle changes, including chewing gum. This note was constructed using voice recognition software. While every effort has been made to ensure accuracy and lead net software developer, still areas may have been included sometimes these areas may affect the content or meeting of the given symptoms. Total time spent caring for the patient today was 20 minutes. This includes time spent before the visit reviewing the chart, time spent during the visit, and time spent after the visit and documentation. Patient was informed and verbally consented to the use of an ambient scribe for clinic note documentation during this visit. Orders: Referrals Dermatology Referral L60.8 - Other nail disorders, R21 - Rash and other nonspecific skin eruption
[2025-03-31 08:26] VITALS: BP 130/68; PULSE 63; TEMP 35.7; O2SAT 94; BMI 25.0
== END 2025-03-31 08:54 | disposition home or self-care (01) ==
LOC: HO.HMCH 08:22
PROVIDERS: PCP Nurse Practitioner Primary Care
DX: L60.8 Other nail disorders (principal); F41.9 Anxiety disorder, unspecified; F32.A Depression, unspecified; E78.00 Pure hypercholesterolemia, unspecified; M54.50 Low back pain, unspecified

== ENCOUNTER → 2025-03-31 08:21 | Outpatient (BNVA) | payer OTHER, SELFPAY | PROVIDERS: PCP Nurse Practitioner Primary Care | DX: M51.360 Other intervertebral disc degeneration, lumbar region with discogenic back pain only (principal); F41.9 Anxiety disorder, unspecified; F32.A Depression, unspecified; E78.5 Hyperlipidemia, unspecified; L60.8 Other nail disorders | CPT/HCPCS: 99212 ==

== ENCOUNTER 2025-08-24 11:14 | Outpatient (AMB) | payer OTHER, SELFPAY ==
--- NOTE | 2025-08-24 11:19 | MHC.OFFVIS ---
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 no concerns Chemical Research Engineer Required: No Information Interpreted: non-clinical & clinical Crystalizer Tender: Crystalizer Tender Present (Tiffany) Accompanied by: Self / Same As Patient Allergies cephalexin Allergy (Severe, Verified 08/24/25 11:22) Anaphylaxis latex (LATEX) Allergy (Unknown, Verified 08/24/25 11:22) RASH milk (MILK) Allergy (Unknown, Verified 08/24/25 11:22) UNKNOWN Medication List - Last Reconciled 08/24/25 by Tari Montano LPN calcium carbonate 500 mg PO DAILY cholecalciferol (vitamin D3) 25 mcg PO DAILY estradiol 0.01%(0.1mg/gram) (Estrace) 1 g vaginal 2XW magnesium 200 mg PO DAILY multivitamin (Daily Multi-Vitamin tablet) 1 tab PO DAILY Do you need a note to return to daycare/school/sports/work: No HPI Comments Details: Patient is a postmenopausal woman presenting for her annual cilnical scientist examination. Deputy Juvenile Officer concerns: none. Stopped using topical Estrace last year due to skin irritation. Currently not sexually active. Denies any vaginal dryness or irritation. STI testing offered; she accepts. Attempting to eat a healthy diet with calcium and vitamin D and stays active with exercise. Hysterectomy due to HMB. Last mammogram; 2024. Colonoscopy is UTD. [facility] Surgical History Hx of removal of ovary Hx of total hysterectomy Hx of appendectomy Family History (Updated 08/24/25 @ 11:44 by Bharati Walker CNM) Father HTN (hypertension) Stroke Mother HTN (hypertension) Stroke Breast cancer, Onset Age: 60 Maternal Grandmother Spinal cord cancer Sister Breast cancer, Onset Age: 66 Social History Household Members: None Housing: House Alcohol intake: current Alcohol intake frequency: does not drink Alcohol type: wine Patient Tobacco Use Status: Never used Tobacco e-Cigarette/Vaping Use: Never Used Second Hand Smoke Exposure: No service: No Current occupational status: employed 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 Current occupational exposures/hazards: No Sexual orientation: Straight/Heterosexual Gender identity: Female Cognitive needs: No Hearing needs: No Vision needs: Yes (Glasses) Female Reproductive History Menstrual Age of Menarche: 13 Date of last menstrual period: 08/24/15 Menopause type: surgical Total pregnancies: 0 Number of Living Children: 0 Date of last pap smear: 08/24/15 History of abnormal pap smear: Yes Date of Mammogram: 10/07/24 History of abnormal mammogram: No Review of Systems Const All systems reviewed & are unremarkable except as noted in HPI and below Reports as per HPI Eyes Reports no additional complaints ENT Reports no additional complaints Card Reports no additional complaints Resp Reports no additional complaints GI Reports as per HPI and Reports no additional complaints Reports as per HPI Musc Reports no additional complaints Skin/Breast Reports as per HPI Neuro Reports no additional complaints Psych Reports no additional complaints Endo Reports no additional complaints Chago/Lymph Reports no additional complaints Aller/Immun Reports no additional complaints Physical Exam Vital Signs: Last Vital Signs BP 110/72 08/24/25 11:21 BMI result Body Mass Index 25.8 Const General: cooperative, healthy appearing, no acute distress, well developed and alert Orientation/consciousness: patient oriented x3 HEENT Head: Yes normal to inspection Eyes General: appearance normal, both eyes and all related structures Neck Neck: Yes normal visual inspection Thyroid: Thyroid normal Chest Chest palpation & inspection: normal inspection of the chest and other (no puckering, dimpling, peau de orange, retraction, discharge, masses) Breast/axilla inspection: normal inspection of the breasts Breast/axilla palpation: normal palpation of the breasts Resp Effort & Inspection: normal respiratory effort GI Inspection: Yes normal to inspection Palpation (GI): Soft to palpation Rectal Exam - Female: deferred General: Yes bladder normal to palpation External Female Exam: normal external appearance and normal appearance of the urethra Speculum Exam - Vagina: normal appearance of the vagina, normal palpation, normal vaginal discharge and vagina atrophic Speculum Exam - Cervix: Cervix absent (vag cuff no lesions or nodules) Bimanual exam- vagina & uterus: normal bimanual exam, normal palpation, bladder normal to palpation and uterus absent Bimanual Exam- Adnexa, other: no masses Skin General skin exam: no rashes or lesions noted Rashes: no rashes Neuro General: patient oriented x3 Cognition (Neuro): normal cognition Extrem General: Yes normal to inspection Psych Attitude: cooperative Thought process: Normal thought process present Assessment & Plan Assessment & Plan (1) Encounter for well woman exam with routine gynecological exam: Code(s): Z01.419 - Encounter for gynecological examination (general) (routine) without abnormal findings Category: Medical Plan Discussed: Current recommendations for pap smears per ASCCP guidelines. Breast awareness, periodic self breast exams and yearly mammogram. Maintain a healthy lifestyle, well balanced diet including Calcium 1,200 mg and Vitamin D 600 IU daily, and routine exercise. Atrophic changes- treatment options including Vagifem or Estring, botanical balms, and other gmvp-fis-evvhoic products. Consider BRCA testing, consult with breast surgeon for high-risk screening-she is not interested at this time but will consider in advised to call the office if she had would like referral. Patient verbalizes understanding and agrees to the plan of care. She was given opportunity to ask questions and all questions were answered to the best of my ability. RTO in 1 year for annual cilnical scientist exam. This note is constructed using voice recognition software. While every effort has been made to ensure accuracy, fire protection specialist errors may have been included. Coding Level of Care Code Est Pt Prev Care 40-64y(07121) Diagnoses Encounter for well woman exam with routine gynecological exam Z01.419
[2025-08-24 11:21] VITALS: BP 110/72; BMI 25.8
== END 2025-08-24 11:59 | disposition home or self-care (01) ==
LOC: HO.HWS 11:15
PROVIDERS: Visit Provider Advanced Practice Midwife
DX: Z01.419 Encounter for gynecological examination (general) (routine) without abnormal findings (principal)
CPT/HCPCS: 99396; 99459

== ENCOUNTER → 2025-08-24 11:14 | Outpatient (BNVA) | payer OTHER, SELFPAY | PROVIDERS: Visit Provider Advanced Practice Midwife | DX: Z01.419 Encounter for gynecological examination (general) (routine) without abnormal findings (principal); Z71.3 Dietary counseling and surveillance; Z68.25 Body mass index [BMI] 25.0-25.9, adult | CPT/HCPCS: 99396 ==